=== PATIENT | female | born 1970 | race Caucasian/White ===

== ENCOUNTER 2023-11-16 08:30 | Day surgery (SDC) | payer BC, SELFPAY ==
--- NOTE | 2023-11-15 10:10 | EMB_PTH ---
PATHOLOGY RESULTS PATIENT: JAYJAY PETIT LOC: [facility] [place] U#:[id number] AGE/SX: 53/F ROOM: RE11/16/[address]: Dr. Latosha Ralph MD : 1970 BED: DIS: 11/16/2023 SPEC #: [id number] RECD: 11/16/23 12:42 STATUS: GRIS AYALA #: [id number] CASSY: 11/15/23 10:[address]: Latosha Ralph DEPT: SURGICAL PATHOLOGY RECD BY: Amy Ring ENTERED: 11/16/23 12:42 SP TYPE: ENDOM BX/C Tissues: Endometrium, NOS Procedures: Surgery Specimen Level IV Comments: @ Specimen number changed from [id number] to [id number] @ on 11/16/23 at 1245 by MG. HEADER CPT:OPERATION: Hysteroscopy, D & C, polyp resection, Symphion PRE-OP DIAGNOSIS: Menorrhagia, endometrial polyp TISSUE SUBMITTED: Endometrial curettings MICROSCOPIC DIAGNOSIS Endometrium, curettings: Proliferative endometrium with mild disorder and focal glandular breakdown. AM:dayne 11/17/2023 MICROSCOPIC DESCRIPTION Slides are reviewed. GROSS DESCRIPTION Received in fixative is one container labeled with the patient's name and designated endometrial curettings. The specimen consists of multiple irregular fragments of light wylie soft tissue that in aggregate measure 5.0 x 3.0 x 0.3 cm. The entire specimen is submitted in two cassettes. / HANNAH:dayne 11/16/2023 TC:5 CPT: 38506
[2023-11-16] VITALS (7 sets, daily range): BP systolic 117–134; BP diastolic 56–70; PULSE 63–82; RESP 16–18; TEMP 36.2–36.5; O2SAT 98–100; BMI 28.5
[2023-11-16] MEDS: Lactated Ringers 1,000 ML 15 ML IV (09:13)
[2023-11-16] MEDS: Acetaminophen 500 MG Tablet 1000 MG PO (09:17)
[2023-11-16] MEDS: Ketorolac 30 MG/ML Syringe IV (09:18)
[2023-11-16 09:23] LABS: Hematocrit 38.4 % (37-47); Hemoglobin 12.5 g/dL (12.0-15.0); Mean Corp Hgb Conc 32.6 g/dL (32-36); Mean Corpuscular Volume 95.3 fL (81-99); Mean Platelet Vol. 10.1 fl (6.2-12.0); Platelet Count 206 K/mm3 (150-450); RBC Distribution Width CV 12.7 % (11.6-14.6); RBC Distribution Width SD 44.3 fl (35.1-43.9); Red Blood Count 4.03 M/mm3 (4.2-5.4); White Blood Count 5.1 K/mm3 (4.4-11.0)
[2023-11-16 09:25] LABS: Internal QC Validated? YES +Cl - CLEAR BKGD; Pregnancy, Urine Negative Negative
--- NOTE | 2023-11-16 10:11 | HP.PCM_ITS ---
History and Physical Date of Admission: 11/16/23 Pre-Op History and Physical ? HPI: The patient is a 53 year old female presenting for pre-operative visit. She is scheduled for hysteroscopy D&C with polyp resection, for heavy menses and endometrial polyp on 11/16/23. Procedure discussed along with risks, benefits and complications. Other alternatives discussed for management. Consent form signed? Yes. ? ? PAST MEDICAL HISTORY PAST MEDICAL HISTORY Diagnosis Date ? Herniated nucleus pulposus, L5-S1 ? ? BWC ? TMJ dysfunction ? ? ? PAST SURGICAL HISTORY PAST SURGICAL HISTORY Procedure Laterality Date ? CHOLECYSTECTOMY ? 08/07/2017 ? ? EGD ? ? ? LAPAROSCOPY-YONG ? ? ? dx with endometriosis ? TMJ Bilateral 1987 ? surgery ? ? ? CURRENT MEDICATIONS Current Outpatient Medications Medication Sig Dispense Refill ? medroxyPROGESTERone (PROVERA) 10 mg tablet Take 1 tablet by mouth once daily. 10 tablet 0 ? baclofen (LIORESAL) 10 mg tablet Take by mouth three times daily. ? 0 ? acetaminophen (TYLENOL) 325 mg tablet Take 650 mg by mouth every 6 hours as needed. ? ? ? melatonin 2.5 mg chew Take 1 tablet by mouth daily at bedtime. ? ? ? ESCITALOPRAM OXALATE (LEXAPRO ORAL) Take 10 mg by mouth once daily. ? ? ? ASCORBIC ACID (VITAMIN C ORAL) Take by mouth once daily. ? ? ? LORATADINE (CLARITIN ORAL) Take by mouth once daily. ? ? ? MAGNESIUM ORAL Take by mouth once daily. ? ? ? CALCIUM CARBONATE/VITAMIN D3 (VITAMIN D-3 ORAL) Take by mouth once daily. ? ? ? ibuprofen (ADVIL) 200 mg tablet Take 200 mg by mouth as needed. ? ? ? No current facility-administered medications for this visit. ? ? ALLERGIES: Hibiclens [Chlorhexidine] ? PERSONAL HISTORY: SOCIAL HISTORY Social History ? Tobacco Use ? Smoking status: Never ? Smokeless tobacco: Never Vaping Use ? Vaping Use: Never used Substance Use Topics ? Alcohol use: Yes ? ? Comment: 1 drink a month ? Drug use: No ? FAMILY HISTORY: FAMILY HISTORY FAMILY HISTORY Problem Relation Age of Onset ? Hypertension Mother ? ? Thyroid Mother ? ? Diabetes Father ? ? Hypertension Father ? ? No Known Problems Sister ? ? No Known Problems Brother ? ? Heart Maternal Grandmother ? ? Dementia Maternal Grandmother ? ? No Known Problems Maternal Grandfather ? ? No Known Problems Paternal Grandmother ? ? No Known Problems Paternal Grandfather ? ? ? REVIEW OF SYMPTOMS: GENERAL: denies fevers or chills ENDOCRINOLOGY: has not been on steroids Cardiology : denies palpitations or chest pain Respiratory: denies SOB or cough Hematology: denies history of prolonged bleeding or easy bruising or VTE Allergy: Denies history of personal or family history of allergy to anesthesia ? PHYSICAL EXAMINATION: ? VITALS: Blood pressure 110/72, pulse 78, resp. rate 16, height 5' 4 (1.626 m), weight 167 lb 12.8 oz (76.1 kg), last menstrual period 08/15/2023. ? GENERAL: The patient is well nourished, well hydrated in no acute distress. , The patient is oriented to time, place, and person. NECK: Supple. No lynphadenopathy, normal thyroid, no thyromegaly. LUNGS: Clear to auscultation bilaterally. no wheezes, rhonchi or rales HEART: Regular rate and rhythm, Normal heart sounds, and No murmurs or gallops ? IMPRESSION: heavy menstrual bleeding, endometrial polyp ? PLAN: The risks/benefits/alternatives and personal involved for the planned hysteroscopy D&C with endometrial polyp resection were reviewed with the patient. Her questions were answered to her satisfaction and she desires to proceed. Consent was signed. I reviewed with her postop instructions and expec tations. ? ? I have reviewed and updated past medical and surgical history, medications and allergies Assessment & Plan Assessment/Plan (1) Menorrhagia: (2) Endometrial polyp:
--- NOTE | 2023-11-16 10:36 | PCM.DC ---
Discharge Instructions Diet Discharge Diet: No restrictions Activity May resume sexual activity in: 1 week Lifting Restrictions: none Dressing / Incision Call your doctor if your incision/area has: Sudden Increased Bleeding and Foul Smelling Discharge Call your doctor if you observe: Fever of 101 or Higher and Using more than 1 pad per hour (for 2 hrs in a row) Follow Up Care Please Follow Up With: Latosha Ralph MD When: You do not need a postop appointment. Call [phone] to make an appointment or send a [employer] message with concerns. Test Results: Test results from this visit will be discussed in further detail at your follow-up appointment, if applicable. Discharge Plan Admission Primary Reason for Your Visit: Hysteroscopy D&C Attending Provider: Latosha Ralph Discharge Orders/Prescriptions Prescriptions: No Action baclofen 10 mg tablet 10 mg PO Q12H Patient Comments: TAKE 1 TABLET BY MOUTH TWICE A DAY escitalopram oxalate 10 mg tablet 10 mg PO DAILY Patient Comments: TAKE 1 TABLET BY MOUTH IN THE MORNING loratadine [Claritin] 10 mg tablet 10 mg PO DAILY ascorbic acid (vitamin C) [C-500] 500 mg tablet extended release 1,000 mg PO DAILY vitamin B complex Capsule 1 cap PO QHS Mag Glycinate 100 mg tablet 240 mg PO QHS melatonin 3 mg tablet 3 mg PO QHS cholecalciferol (vitamin D3) [Vitamin D3] 125 mcg (5,000 unit) tablet 125 mcg PO QHS ibuprofen [Advil] 200 mg tablet 200 mg PO Q8H PRN (Reason: pain) Disposition Disposition (needs filled in before D/C Order can be placed): Home, Self Care
[2023-11-16] MEDS: Lidocaine 1% /Epi 1:100 (20ml) 20 ML Vial (10:40)
--- NOTE | 2023-11-16 10:52 | OP.PCM_ITS ---
Problems Associated Problem List Diagnoses (1) Endometrial polyp: (2) Menorrhagia: Report of Operation Date of Procedure: 11/16/23 Pre-Operative Diagnosis: menorrhagia, endomtrial polyp Post-Operative Diagnosis: same Surgery/Procedure Performed:: Hysteroscfopy D&C with polyp resection Description of Surgical Findings:: ragged endometrium, normal cervix and vagina, posterior uterine flat polyp vs fibroid Surgeon: Latosha Ralph specification manager: None Type of Anesthesia: MAC/Supplemental/Local Anesthesiologist: Sydnie Chester Special Medications: none Specimen's removed: endometrial currettings and possible polyp or fibroid Drains: none Estimated Blood Loss (mL): 10 Fluids Replaced: 900 Description of Procedure: The patient was taken to the OR where she was prepped and draped in dorsal lithotomy position. The weighted speculum was placed in the vagina and the anterior lip of the cervix was grasped with a single-tooth tenaculum. A paracervical block was administered with [1% lidocaine with 1-100,000 epinephrine solution]. The cervix was dilated serially with Hegar dilators. The Symphion hysteroscope was placed into the uterine cavity and the above findings were noted. Bilateral tubal ostia [were] identified. The symphion resection device was readied and inserted. Polypoid versus fibroid lesion on the posterior wall was removed and a visual D&C was done of the endometrial cavity.. The instruments were removed from the vagina. The specimen was handed off and sent to pathology. All sponge and needle counts were correct. Vaginal sweep was performed by me. The patient was awakened and taken to the recovery room in stable condition. Hysteroscopic fluid deficit calculated to be 600 cc Grafts/Implants Used: none Procedure Start Time: 10:39 Procedure Stop Time: 10:52 Complications none Admit VTE Documentation VTE Present on Admission: No VTE Mechan Device Prophylaxis: SCD's VTE Pharm Prophylaxis ordered?: No Reason prophylaxis not ordered:: Procedure Not Indicated
== END 2023-11-16 12:26 | disposition home or self-care (01) ==
LOC: SDC 08:41 → AC 08:42
PROVIDERS: Anesthesiology; Visit Provider Obstetrics & Gynecology
PROC: 0UB98ZZ Excision of Uterus, Via Natural or Artificial Opening Endoscopic (ICD-10-PCS; CPT 58558; principal; 2023-11-16 09:55)
DX: N92.0 Excessive and frequent menstruation with regular cycle (principal); N84.0 Polyp of corpus uteri; E78.00 Pure hypercholesterolemia, unspecified
CPT/HCPCS: 58558; 00952; 81025; 85027; 88305; J7120; J2405